=== PATIENT | male | born 1980 | race Caucasian/White ===

== ENCOUNTER 2018-08-02 21:23 | Emergency (ER) | payer BC ==
[2018-08-02] MEDS: PERCOCET 5MG/325MG TAB PO (22:34)
== END 2018-08-02 22:47 | disposition home or self-care (01) ==
LOC: M ED 21:23
DX: S83.91XA Sprain of unspecified site of right knee, initial encounter (principal); W00.0XXA Fall on same level due to ice and snow, initial encounter; Y92.018 Other place in single-family (private) house as the place of occurrence of the external cause; F17.210 Nicotine dependence, cigarettes, uncomplicated
CPT/HCPCS: 73564

== ENCOUNTER 2018-08-30 08:19 | Day surgery (SDC) | payer BC ==
[~2018-08-30] VITALS: Ht 180.3 cm; Wt 89.7 kg
[~2018-08-30 08:19] MED LIST: ELIQ2.5T PO; IBUP1TAB6 PO; LEVA1TAB2 PO; LR 1,000 ML IV SCH; PERC5TAB12 PO
[2018-08-30] MEDS ORDERED: ROPIvacaine 0.5% 30 ML INJECTION (J2795 PER 1MG) ONE (08:20)
[2018-08-30] MEDS ORDERED: ROCURONIUM BROMIDE 50 MG/5 ML VIAL As Ordered ONE (08:40)
[2018-08-30] MEDS ORDERED: PROPOFOL 200 MG/20 ML VIAL As Ordered ONE ×2 (08:40→11:21)
[2018-08-30] MEDS ORDERED: LIDOCAINE 2% INJ 100 MG/5 ML SDV (FOR ANES.) As Ordered ONE (08:40)
[2018-08-30] MEDS ORDERED: KETOROLAC 60 MG/2 ML VIAL (J1885) As Ordered ONE (08:41)
[2018-08-30] MEDS ORDERED: ONDANSETRON 4MG/2ML VIAL (J2405) As Ordered ONE (08:41)
[2018-08-30] MEDS ORDERED: dexameTHASONE 4 MG/ML 1ML VIAL (J1100) As Ordered ONE (08:41)
[2018-08-30] MEDS ORDERED: fentaNYL 100 MCG/2 ML INJECTION (J3010) As Ordered ONE ×3 (08:41→11:44)
[2018-08-30] MEDS ORDERED: MIDAZOLAM INJ 2 MG/2 ML VIAL (J2250) As Ordered ONE ×2 (08:42→09:32)
[2018-08-30] MEDS ORDERED: BUPIVACAINE HCL 0.5% 10 ML VIAL As Ordered ONE (10:05)
[2018-08-30] MEDS ORDERED: MIDAZOLAM INJ 2 MG/2 ML VIAL (J2250) IV ONE (10:30)
[2018-08-30] MEDS ORDERED: fentaNYL 100 MCG/2 ML INJECTION (J3010) IV ONE (10:30)
[2018-08-30] MEDS ORDERED: LABETALOL HCL 100 MG/20 ML VIAL As Ordered ONE ×2 (11:18→13:41)
[2018-08-30] MEDS ORDERED: SUGAMMADEX SODIUM 500 MG/5 ML VIAL (BRIDION) As Ordered ONE (11:25)
[2018-08-30] MEDS ORDERED: BUPIVACAINE HCL 0.25% 30 ML VIAL As Ordered ONE (13:30)
[2018-08-30] MEDS ORDERED: fentaNYL 100 MCG/2 ML INJECTION (J3010) IV PRN (14:15)
[2018-08-30] MEDS ORDERED: ONDANSETRON 4MG/2ML VIAL (J2405) IV PRN (14:15)
[2018-08-30] MEDS ORDERED: LR 1,000 ML IV SCH ×2 (14:15)
[2018-08-30] MEDS ORDERED: HYDROMORPHONE HCL 0.5 MG/ 0.5 ML SYRINGE (J1170 PER 1) IV PRN (14:15)
[2018-08-30] MEDS: PERCOCET 5MG/325MG TAB PO PRN ×2 (14:35→15:00)
[2018-08-30 14:45] VITALS: BP 175/98
--- NOTE | 2018-08-31 07:36 | RO ---
DATE OF PROCEDURE: 08/30/2018 PREOPERATIVE DIAGNOSES: 1. Right knee anterior cruciate ligament retear. 2. Right knee medial meniscus tear. 3. Right knee osteoarthritis. POSTOPERATIVE DIAGNOSES: 1. Right knee anterior cruciate ligament retear. 2. Right knee medial meniscus tear. 3. Right knee osteoarthritis. PROCEDURE: 1. Right knee arthroscopic assisted revision anterior cruciate ligament reconstruction with Achilles allograft. 2. Right knee arthroscopic partial medial meniscectomy and chondroplasty. SURGEON: Dr. Jackson Cary SCAN COORDINATOR: MECCA Arndt ANESTHESIA: General with preop nerve block. IV FLUIDS: Lactated Ringers. ESTIMATED BLOOD LOSS: 10 mL. IMPLANTS: Arthrex 7 x 23 and 10 x 28 mm PEEK interference screws with a 4.75 mm PEEK SwiveLock as backup tibial fixation. CLOSURE: Nylon. DESCRIPTION OF PROCEDURE: Patient identified in preoperative holding area. The right leg marked by myself. He had an adductor canal block. He was then brought to the operating room and placed supine on a well-padded OR table. General anesthesia induced. He received appropriate IV antibiotics within 1 hour of incision. Exam under anesthesia revealed he lacked 2 degrees of extension and flexion to 140 degrees. Stable to varus and valgus stress. He had a grade 1+ Fabiola with a soft endpoint, but a dramatically positive pivot shift and negative posterior drawer. A well-padded tourniquet was applied to the right thigh and then the right leg was prepped and draped in normal sterile fashion from the toes up to the tourniquet with Chloraprep. A sandbag had been taped to the end of the table. A time-out performed per hospital protocol. The right leg was exsanguinated with an Esmarch bandage. Tourniquet inflated to 275 mmHg. Thuan Subramanian was present for the entire procedure and participated in all essential portions of the procedure. He was crucial for preparing the Achilles allograft on the back table, holding the arthroscope, positioning the knee, hyperflexing the knee for drilling the tunnel and placing screws. I made an accessory anterolateral portal hugging the lateral border of the patellar tendon. A 30 degrees arthroscope introduced into the joint atraumatically. Proximal aspect of the patella had grade 1 chondromalacia, central and distally a grade 2 with a few unstable flaps. The trochlea was in good condition overall. No loose bodies. Medial compartment was entered where there was grade 2 chondromalacia in the medial femoral condyle and grade 1 in the medial tibial plateau. There was a displaced bucket handle medial meniscus tear flipped into the notch. The peripheral rim of the meniscus had a highly complex degenerative and chronic appearance in the red-white zone. There was an intact peripheral rim all way from the root to the anterior horn. This was not repairable. The anterior cruciate ligament (ACL) had intact fibers from previous surgery, but they appeared lax. The leg was then brought to figure four position where there were no lateral meniscus tears, but there was a dramatically softened appearance of the lateral tibial plateau. An anterior medial portal was created under direct visualization. This was a far medial portal for appropriate drilling on the femur. I performed a partial medial meniscectomy with a combination of meniscal punches and shaver, trimming this back to a stable rim. I would estimate I removed just over 50% of the medial meniscus. The entire red-red area from the root all the way to the anterior horn was intact and the entire anterior horn was also intact. ACL fibers were then probed and found to be lax. The shaver was used to remove all the ACL fibers and carefully elevated off the posterior cruciate ligament (PCL). The leg was brought into the figure four position where there no lateral meniscus tears, but on probing of the lateral tibial plateau there was traumatic softening of articular cartilage. No unstable flaps. I determined that both the femoral and tibial tunnels from the initial ACL surgery were in such a position that if I placed anatomic tunnels I could avoid them. My visitor service assistant had prepared on the back table an Achilles allograft cut to a size 10 dowel with two drill holes. #2 FiberWire was placed through them and then Krackow stitches with #2 FiberWire. The appropriate pin placement for a single bundle ACL reconstruction was marked with a curette and then an 8 mm xucf-oze-hiv guide was used through the anteromedial portal as the knee was hyperflexed and the Beath pin was advanced up the lateral femoral condyle. A low profile 10 mm [place] reamer was then used to drill a femoral tunnel approximately 25 mm in depth. The shaver was used to remove all bony debris. A passing suture of PDS suture was placed through the Beath pin. I opened about 4 cm of the distal aspect of his previous [id number]-[id number] (BTB) incision and exposed the metallic staple. The staple was interestingly placed very central and my typical tibial tunnel would have been medial to it so there was no reason to remove it. The tibial drill guide was then placed and a guide pin was drilled from outside-in and this entered in line with the anterior horn of the lateral meniscus approximately 10 mm posterior to the intrameniscal ligament and just medial and posterior to the original tunnel. A 10 mm reamer was then used to create a socket. I would estimate about 75% of the circumference of my tunnel was through [place] bone and maybe 25% at most involved the previous tunnel. The shaver was used to remove all soft tissue at the tibial aperture to help prevent a cyclops. The passing suture was then retrieved out the tibial tunnel. The graft was passed into the joint and the bone block was docked into the femoral tunnel. A nitinol wire was placed and then a size 7 tap was used assisted. A size 7 x 23 Arthrex PEEK interference screw was then placed over the nitinol wire with the knee held in hyperflexion with fantastic fixation. The knee was brought into full extension. There was no notch impingement. The knee was then brought up into full extension and a large bump placed behind the femoral condyles. A nitinol wire was placed between the soft tissue portion of the graft and the tibial tunnel and a size 10 x 28 mm PEEK interference screw was placed over the nitinol wire as I applied distal traction on the sutures and my visitor service assistant applied a posterior drawer to the tibial tubercle. There is surprisingly excellent fixation on that screw. Given this was a revision setting and given that there was soft tissue to bone fixation in the tibia, I did feel that this warranted backup fixation, so I placed a 4.75 mm PEEK SwiveLock 3 cm distal to the tibial tunnel as a backup fixation. There was a grade 1A Fabiola. Range of motion was still 2 degrees lacking full extension and the knee easily flexed over 120 degrees. Repeat Fabiola there was no change. The tourniquet was let down and there was excellent reperfusion. Hemostasis with electrocautery. I then extensively irrigated. Incision was closed in a layered fashion with #2-0 Vicryl and a running #3-0 nylon. Portals closed with nylon. The patient's block was decent, but anesthesia mentioned he was still having some pain, so I injected 20 mL of 0.25% Marcaine with a 22 gauge needle for additional anesthetic. A bulky sterile bandage was applied. All counts correct times two. Complications none. DISPOSITION: The patient is weightbearing as tolerated with his knee brace locked in extension. We talked extensively preop about deep vein thrombosis (DVT) prophylaxis. He is going to do full dose aspirin for a month for DVT prophylaxis. He was educated on the signs and symptoms of DVT and pulmonary embolism (PE). He knows to go to the ER or call for any signs of shortness of breath, tachycardia, tachypnea, chest pain, and to go to the ER or call our office if he is having calf swelling or pain.
[2018-08-31] MEDS ORDERED: ASPIRIN 325 MG TAB PO SCH (09:00)
== END 2018-08-30 15:53 | disposition home or self-care (01) ==
LOC: M SDC 08:19
PROVIDERS: ATTEND Orthopaedic Surgery
DX: S83.511A Sprain of anterior cruciate ligament of right knee, initial encounter (principal); M23.231 Derangement of other medial meniscus due to old tear or injury, right knee; M17.11 Unilateral primary osteoarthritis, right knee; M22.41 Chondromalacia patellae, right knee; J00 Acute nasopharyngitis [common cold]; Z72.0 Tobacco use; Z86.718 Personal history of other venous thrombosis and embolism; X58.XXXA Exposure to other specified factors, initial encounter; Y93.89 Activity, other specified; Y92.89 Other specified places as the place of occurrence of the external cause; Y99.8 Other external cause status
CPT/HCPCS: 29881; 29888; C1713; C1762; J0690; J1100; J1885; J2250; J2405; J2795; J3010

== ENCOUNTER → 2019-10-09 | Outpatient (REF) | payer OTHER ==
[~2019-10-09] MED LIST changes: -LR 1,000 ML IV SCH
[2019-10-09 12:23] LABS: HEMATOCRIT 49.2 % (42.0-52.0); HEMOGLOBIN 16.3 g/dl (13.5-17.5); MEAN CORPUSCULAR HEMOGLOBIN 30.5 pg (27.0-33.0); MEAN CORPUSCULAR HGB CONC 33.1 g/dl (32.0-36.5); MEAN CORPUSCULAR VOLUME 92.1 fl (80.0-96.0); PLATELET COUNT, AUTOMATED 330 10^3/uL (150-450); RED BLOOD COUNT 5.34 10^6/uL (4.30-6.10); WHITE BLOOD COUNT 11.7 10^3/uL (4.0-10.0)
[2019-10-09 12:42] LABS: ALBUMIN 3.9 GM/DL (3.2-5.2); ALT/SGPT 41 U/L (12-78); BILIRUBIN,TOTAL 0.4 MG/DL (0.2-1.0); BLOOD UREA NITROGEN 9 MG/DL (7-18); CALCIUM LEVEL 9.6 MG/DL (8.5-10.1); CARBON DIOXIDE LEVEL 30 MEQ/L (21-32); CHLORIDE LEVEL 107 MEQ/L (98-107); CHOLESTEROL LEVEL 283 MG/DL (<200); CHOLESTEROL RISK RATIO 6.902 (<5); CREATININE FOR GFR 0.91 MG/DL (0.70-1.30); GLOMERULAR FILTRATION RATE > 60.0 (>60); GLUCOSE, FASTING 85 MG/DL (70-100); HDL CHOLESTEROL 41 MG/DL (>40); LDL CHOLESTEROL 208 MG/DL (<100); NON-HDL-C 242 MG/DL; POTASSIUM SERUM 4.6 MEQ/L (3.5-5.1); SODIUM LEVEL 141 MEQ/L (136-145); TOTAL PROTEIN 7.1 GM/DL (6.4-8.2); TRIGLYCERIDES LEVEL 172 MG/DL (<150)
== END ==
LOC: M SFHCCLAY 07:35
PROVIDERS: ATTEND Family Medicine
DX: Z13.220 Encounter for screening for lipoid disorders (principal); Z13.1 Encounter for screening for diabetes mellitus; R53.83 Other fatigue; Z82.49 Family history of ischemic heart disease and other diseases of the circulatory system

== ENCOUNTER → 2019-12-10 | Outpatient (CLI) | payer MEDICAID ==
--- NOTE | 2019-12-10 08:18 | REP ---
Clinical: Right wrist pain. Technique: AP, lateral, bilateral oblique views. Findings: The carpal bones, surrounding osseous structures, soft tissues, and joint spaces are normal. There is no evidence for acute fracture or dislocation. No subcutaneous emphysema or radiodense foreign body. Impression: Normal age-appropriate right wrist series. No acute fracture or dislocation Electronically Signed by Shalom Lan MD 12/10/2019 08:09 A
== END ==
LOC: M CLY 07:40
PROVIDERS: ATTEND Family Medicine
DX: M25.531 Pain in right wrist (principal)

== ENCOUNTER → 2020-01-07 | Outpatient (REF) | payer MEDICAID ==
[2020-01-07 11:54] LABS: BLOOD UREA NITROGEN 14 MG/DL (7-18); CALCIUM LEVEL 9.2 MG/DL (8.5-10.1); CARBON DIOXIDE LEVEL 27 MEQ/L (21-32); CHLORIDE LEVEL 103 MEQ/L (98-107); CREATININE FOR GFR 0.76 MG/DL (0.70-1.30); GLOMERULAR FILTRATION RATE > 60.0 (>60); GLUCOSE, FASTING 103 MG/DL (70-100); SODIUM LEVEL 138 MEQ/L (136-145)
== END ==
LOC: M SFHCCLAY 07:49
PROVIDERS: ATTEND Family Medicine
DX: I11.9 Hypertensive heart disease without heart failure (principal); D72.829 Elevated white blood cell count, unspecified

== ENCOUNTER → 2020-01-09 | Outpatient (REF) | payer MEDICAID ==
[2020-01-09 11:42] LABS: BASO # 0.1 10^3/uL (0.0-0.2); EOS # 0.2 10^3/uL (0.0-0.5); EOS % 1.3 % (0.0-3.0); HEMATOCRIT 48.1 % (42.0-52.0); HEMOGLOBIN 16.7 g/dl (13.5-17.5); LYMPH # 2.6 10^3/uL (1.5-5.0); LYMPH % 22.4 % (24.0-44.0); MEAN CORPUSCULAR HEMOGLOBIN 31.3 pg (27.0-33.0); MEAN CORPUSCULAR HGB CONC 34.7 g/dl (32.0-36.5); MEAN CORPUSCULAR VOLUME 90.2 fl (80.0-96.0); MONO # 0.8 10^3/uL (0.0-0.8); MONO % 7.1 % (0.0-5.0); NEUTROPHILS # 7.8 10^3/uL (1.5-8.5); NEUTROPHILS % 67.8 % (36.0-66.0); PLATELET COUNT, AUTOMATED 370 10^3/uL (150-450); RED BLOOD COUNT 5.33 10^6/uL (4.30-6.10); WHITE BLOOD COUNT 11.5 10^3/uL (4.0-10.0)
== END ==
LOC: M SFHCCLAY 07:31
PROVIDERS: ATTEND Family Medicine
DX: D72.829 Elevated white blood cell count, unspecified (principal)

== ENCOUNTER → 2020-02-26 | Outpatient (CLI) | payer MEDICAID ==
[~2020-02-26] MED LIST changes: +AMLO10TA5 PO; +ATOR40TA75 PO; +CHLO125TA PO
--- NOTE | 2020-02-26 08:57 | REP ---
Clinical: Productive cough . Comparison: 11/26/2014 . Technique: PA and lateral. Findings: The mediastinum and cardiac silhouette are normal. The lung andrews are clear and without acute consolidation, effusion, or pneumothorax. The skeletal structures are intact and normal. Impression: 1. No acute cardiopulmonary process. Electronically Signed by Shalom Lan MD 02/26/2020 08:49 A
[2020-02-26 11:48] LABS: BASO # 0.1 10^3/uL (0.0-0.2); BASO % 0.8 % (0.0-1.0); EOS # 0.1 10^3/uL (0.0-0.5); EOS % 0.9 % (0.0-3.0); HEMATOCRIT 46.9 % (42.0-52.0); HEMOGLOBIN 15.9 g/dl (13.5-17.5); LYMPH # 2.3 10^3/uL (1.5-5.0); LYMPH % 17.8 % (24.0-44.0); MEAN CORPUSCULAR HEMOGLOBIN 30.3 pg (27.0-33.0); MEAN CORPUSCULAR HGB CONC 33.9 g/dl (32.0-36.5); MEAN CORPUSCULAR VOLUME 89.3 fl (80.0-96.0); MONO # 1.1 10^3/uL (0.0-0.8); MONO % 8.5 % (0.0-5.0); NEUTROPHILS # 9.4 10^3/uL (1.5-8.5); NEUTROPHILS % 71.5 % (36.0-66.0); PLATELET COUNT, AUTOMATED 327 10^3/uL (150-450); RED BLOOD COUNT 5.25 10^6/uL (4.30-6.10); WHITE BLOOD COUNT 13.2 10^3/uL (4.0-10.0)
[2020-02-26 12:07] LABS: ALBUMIN 3.9 GM/DL (3.2-5.2); ALT/SGPT 53 U/L (12-78); BILIRUBIN,TOTAL 0.5 MG/DL (0.2-1.0); BLOOD UREA NITROGEN 9 MG/DL (7-18); CALCIUM LEVEL 9.4 MG/DL (8.5-10.1); CARBON DIOXIDE LEVEL 28 MEQ/L (21-32); CHLORIDE LEVEL 104 MEQ/L (98-107); CREATININE FOR GFR 0.78 MG/DL (0.70-1.30); FERRITIN 133 NG/ML (26-388); GLOMERULAR FILTRATION RATE > 60.0 (>60); GLUCOSE, FASTING 90 MG/DL (70-100); IRON (FE) 60 UG/DL (65-175); PERCENT SATURATION 17.4 % (19.7-50.0); POTASSIUM SERUM 3.7 MEQ/L (3.5-5.1); SODIUM LEVEL 138 MEQ/L (136-145); TOTAL IRON BINDING CAPACITY 344 UG/DL (250-450); TOTAL PROTEIN 7.4 GM/DL (6.4-8.2)
[2020-02-26 13:57] LABS: FOLATE 8.2 NG/ML; VITAMIN B12 LEVEL 563 PG/ML
== END ==
LOC: M CLY 08:33
PROVIDERS: ATTEND Internal Medicine Hematology & Oncology
DX: D72.829 Elevated white blood cell count, unspecified (principal)

== ENCOUNTER → 2020-09-29 | Outpatient (REF) | payer OTHER ==
[~2020-09-29] MED LIST changes: -AMLO10TA5 PO; +AMLO1TAB25 PO
[2020-09-29 12:13] LABS: BLOOD UREA NITROGEN 14 MG/DL (7-18); CALCIUM LEVEL 10.2 MG/DL (8.5-10.1); CARBON DIOXIDE LEVEL 33 MEQ/L (21-32); CHLORIDE LEVEL 100 MEQ/L (98-107); CHOLESTEROL LEVEL 206 MG/DL (<200); CREATININE FOR GFR 0.89 MG/DL (0.70-1.30); FREE T4 0.93 NG/DL (0.76-1.46); GLOMERULAR FILTRATION RATE > 60.0 (>60); GLUCOSE, FASTING 88 MG/DL (70-100); HDL CHOLESTEROL 40 MG/DL (>40); LDL CHOLESTEROL 116 MG/DL (<100); NON-HDL-C 166 MG/DL; POTASSIUM SERUM 4.2 MEQ/L (3.5-5.1); SODIUM LEVEL 136 MEQ/L (136-145); TRIGLYCERIDES LEVEL 250 MG/DL (<150)
[2020-10-01 00:08] LABS: TESTOSTERONE FREE (DIRECT) 17.7 pg/mL (6.8-21.5)
== END ==
LOC: M SFHCCLAY 07:06
PROVIDERS: ATTEND Family Medicine
DX: R68.82 Decreased libido (principal); E78.00 Pure hypercholesterolemia, unspecified; I11.9 Hypertensive heart disease without heart failure

== ENCOUNTER 2021-05-08 21:31 | Emergency (ER) | payer OTHER ==
[~2021-05-08] VITALS: Ht 180.3 cm; Wt 85.4 kg
[2021-05-08 21:32] VITALS: BP 150/85
== END 2021-05-09 01:30 | disposition left against medical advice (07) ==
LOC: M ED 21:31
DX: Z53.21 Procedure and treatment not carried out due to patient leaving prior to being seen by health care provider (principal)

== ENCOUNTER → 2021-07-21 | Outpatient (REF) | payer OTHER ==
[2021-07-21 11:46] LABS: BLOOD UREA NITROGEN 10 MG/DL (7-18); CALCIUM LEVEL 10.1 MG/DL (8.5-10.1); CARBON DIOXIDE LEVEL 30 MEQ/L (21-32); CHLORIDE LEVEL 103 MEQ/L (98-107); GLOMERULAR FILTRATION RATE > 60.0 (>60); GLUCOSE, FASTING 93 MG/DL (70-100); POTASSIUM SERUM 4.3 MEQ/L (3.5-5.1); SODIUM LEVEL 138 MEQ/L (136-145)
== END ==
LOC: M SFHCCLAY 07:38
PROVIDERS: ATTEND Family Medicine
DX: I11.9 Hypertensive heart disease without heart failure (principal)

== ENCOUNTER → 2022-10-27 | Outpatient (REF) | payer OTHER ==
[2022-10-27 11:59] LABS: ALKALINE PHOSPHATASE 57 U/L (46-116); ALT/SGPT 29 U/L (7.0-40); AST/SGOT 28 U/L (<34); BILIRUBIN,TOTAL 0.5 MG/DL (0.3-1.2); BLOOD UREA NITROGEN 18 MG/DL (9-23); CALCIUM LEVEL 9.9 MG/DL (8.5-10.1); CARBON DIOXIDE LEVEL 30 MMOL/L (20-31); CHLORIDE LEVEL 105 MMOL/L (98-107); CHOLESTEROL LEVEL 167 MG/DL (<200); CHOLESTEROL RISK RATIO 3.18 (<5); CREATININE FOR GFR 0.68 MG/DL (0.70-1.30); GLOMERULAR FILTRATION RATE > 60.0 (>60); GLUCOSE, FASTING 79 MG/DL (60-100); HDL CHOLESTEROL 52.5 MG/DL (>40); LDL CHOLESTEROL 98.5 MG/DL (<100); NON-HDL-C 115 MG/DL; POTASSIUM SERUM 4.5 MMOL/L (3.5-5.1); SODIUM LEVEL 141 MMOL/L (136-145); TOTAL PROTEIN 6.9 G/DL (5.7-8.2); TRIGLYCERIDES LEVEL 80 MG/DL (<150)
== END ==
LOC: M SFHCCLAY 09:03
PROVIDERS: ATTEND Nurse Practitioner Family
DX: I10 Essential (primary) hypertension (principal); E78.5 Hyperlipidemia, unspecified

== ENCOUNTER → 2022-11-18 | Outpatient (CLI) | payer OTHER | LOC: M SOG 08:56 | PROVIDERS: ATTEND Physician Assistant | DX: M25.531 Pain in right wrist (principal) ==

== ENCOUNTER 2023-07-11 06:19 | Day surgery (SDC) | payer OTHER ==
[~2023-07-11] VITALS: Ht 180.3 cm; Wt 81.2 kg
[~2023-07-11 06:19] MED LIST changes: +LISI10TA22 PO
[2023-07-11] MEDS ORDERED: LR 1,000 ML IV SCH ×2 (06:40→08:10)
[2023-07-11] MEDS ORDERED: LIDOCAINE 2% 100MG/5ML SDV (FOR ANES.) As Ordered ONE (06:58)
[2023-07-11] MEDS ORDERED: KETOROLAC 60MG 2ML VIAL As Ordered ONE (06:58)
[2023-07-11] MEDS ORDERED: ONDANSETRON 4MG 2ML VIAL As Ordered ONE (06:58)
[2023-07-11] MEDS ORDERED: propofoL 200 MG/20 ML VIAL As Ordered ONE (06:58)
[2023-07-11] MEDS ORDERED: MIDAZOLAM INJ 2MG/2ML VIAL As Ordered ONE (07:01)
[2023-07-11] MEDS ORDERED: fentaNYL 100 MCG/2 ML INJECTION As Ordered ONE (07:01)
[2023-07-11] MEDS ORDERED: ACETAMINOPHEN 1000MG 100ML IV BAG As Ordered ONE (07:40)
[2023-07-11] MEDS ORDERED: ONDANSETRON 4MG 2ML VIAL IV PRN (08:10)
[2023-07-11] MEDS ORDERED: fentaNYL 100 MCG/2 ML INJECTION IV PRN (08:10)
[2023-07-11] MEDS ORDERED: HYDROMORPHONE HCL 0.5 MG/ 0.5 ML SYRINGE IV PRN (08:10)
[2023-07-11] MEDS ORDERED: oxyCODONE 5MG TAB PO PRN (08:10)
[2023-07-11 09:23] VITALS: BP 128/76; TEMP 97.6; O2SAT 98
== END 2023-07-11 09:30 | disposition home or self-care (01) ==
LOC: M SDC 06:19
PROVIDERS: ATTEND Orthopaedic Surgery Hand Surgery
DX: G56.01 Carpal tunnel syndrome, right upper limb (principal); I10 Essential (primary) hypertension; E78.5 Hyperlipidemia, unspecified; F17.218 Nicotine dependence, cigarettes, with other nicotine-induced disorders; Z86.718 Personal history of other venous thrombosis and embolism; Z79.899 Other long term (current) drug therapy
CPT/HCPCS: 29848; J0131; J0665; J1100; J1885; J2250; J2405; J3010

== ENCOUNTER → 2023-08-09 | Outpatient (CLI) | payer OTHER | LOC: M SLEEP HO 10:42 | PROVIDERS: ATTEND Nurse Practitioner Family | DX: G47.33 Obstructive sleep apnea (adult) (pediatric) (principal) ==

== ENCOUNTER → 2024-05-17 | Outpatient (REF) | payer OTHER ==
[2024-05-17 17:27] LABS: ALBUMIN 4.1 G/DL (3.2-5.2); ALKALINE PHOSPHATASE 62 U/L (46-116); ALT/SGPT 35 U/L (7.0-40); AST/SGOT 27 U/L (<34); BILIRUBIN,TOTAL 0.5 MG/DL (0.3-1.2); BLOOD UREA NITROGEN 14 MG/DL (9-23); CALCIUM LEVEL 10.1 MG/DL (8.5-10.1); CARBON DIOXIDE LEVEL 28 MMOL/L (20-31); CHLORIDE LEVEL 105 MMOL/L (98-107); CHOLESTEROL LEVEL 189 MG/DL (<200); CHOLESTEROL RISK RATIO 4.44 (<5); GLOMERULAR FILTRATION RATE > 60.0 (>60); GLUCOSE, FASTING 84 MG/DL (60-100); HDL CHOLESTEROL 42.5 MG/DL (>40); LDL CHOLESTEROL 126.5 MG/DL (<100); NON-HDL-C 146.5 MG/DL; POTASSIUM SERUM 3.7 MMOL/L (3.5-5.1); SODIUM LEVEL 138 MMOL/L (136-145); TOTAL PROTEIN 6.8 G/DL (5.7-8.2); TRIGLYCERIDES LEVEL 100 MG/DL (<150)
[2024-05-17 18:53] LABS: HEMOGLOBIN A1c 5.4 % (4.0-6.0)
== END ==
LOC: M SFHCCLAY 11:29
PROVIDERS: ATTEND Nurse Practitioner Family
DX: I10 Essential (primary) hypertension (principal); E78.5 Hyperlipidemia, unspecified; G56.01 Carpal tunnel syndrome, right upper limb; F17.210 Nicotine dependence, cigarettes, uncomplicated

== ENCOUNTER → 2025-07-18 | Outpatient (REF) | payer OTHER ==
[~2025-07-18] MED LIST changes: -IBUP1TAB6 PO; +SFHIBU600 PO
[2025-07-18 13:05] LABS: ESTIMATED AVERAGE GLUCOSE 117.0 MG/DL (60-110)
[2025-07-18 13:16] LABS: ALT/SGPT 44 U/L (7.0-40); AST/SGOT 36 U/L (<34); CALCIUM LEVEL 9.4 MG/DL (8.5-10.1); CARBON DIOXIDE LEVEL 30 MMOL/L (20-31); CHLORIDE LEVEL 102 MMOL/L (98-107); CHOLESTEROL LEVEL 194 MG/DL (<200); CHOLESTEROL RISK RATIO 4.42 (<5); CREATININE FOR GFR 0.70 MG/DL (0.70-1.30); GLOMERULAR FILTRATION RATE > 90.0 (>60); LDL CHOLESTEROL 108.4 MG/DL (<100); NON-HDL-C 150.2 MG/DL; POTASSIUM SERUM 4.1 MMOL/L (3.5-5.1); SODIUM LEVEL 140 MMOL/L (136-145); TRIGLYCERIDES LEVEL 209 MG/DL (<150)
== END ==
LOC: M SFHCCLAY 08:46
PROVIDERS: ATTEND Nurse Practitioner Family
DX: I10 Essential (primary) hypertension (principal); E78.5 Hyperlipidemia, unspecified; F17.210 Nicotine dependence, cigarettes, uncomplicated; J30.2 Other seasonal allergic rhinitis